=== PATIENT | female | born 1950 | race Caucasian/White ===

== ENCOUNTER → 2017-06-21 | Outpatient (CLI) | payer OTHER | END | disposition home or self-care (01) | LOC: CVU 12:32 | PROVIDERS: ATTEND Internal Medicine Cardiovascular Disease | DX: I08.3 Combined rheumatic disorders of mitral, aortic and tricuspid valves (principal); E78.00 Pure hypercholesterolemia, unspecified | CPT/HCPCS: 93306 ==

== ENCOUNTER 2017-07-15 06:20 | Day surgery (SDC) | payer OTHER ==
[2017-07-12 09:44] VITALS: BP 150/88
[2017-07-12 10:40] LABS: BLOOD UREA NITROGEN 14 mg/dL (7-18)
[~2017-07-15] VITALS: Ht 167.6 cm; Wt 118.1 kg
[~2017-07-15 06:20] MED LIST: CHRO1000 PO; DILT240C PO; FLEC50TA25 PO; GARL5000 PO; KRIL1CAP19 PO; LEVO112T2 PO; LUTE1CAP PO; PREN1COM10 PO; RIVA20TA PO; SIMV20TA3 PO; TURM538C PO; UBID1CAP43 PO; VITA1CAP PO; cinsulin PO; magnesium PO
[2017-07-15] MEDS ORDERED: MIDAZOLAM 1 MG/ML, 5ML ONE (06:56)
[2017-07-15] MEDS ORDERED: FENTANYL PF 100 MCG/2ML ONE (06:56)
== END 2017-07-15 08:53 ==
LOC: CACL 06:20
PROVIDERS: ATTEND Internal Medicine Cardiovascular Disease
DX: I48.91 Unspecified atrial fibrillation (principal); E78.5 Hyperlipidemia, unspecified; E03.9 Hypothyroidism, unspecified; I10 Essential (primary) hypertension; Z98.890 Other specified postprocedural states
CPT/HCPCS: 36415; 80048; 84443; 85610; 92960; 93005; J2250; J3010

== ENCOUNTER 2017-08-03 10:49 | Day surgery (SDC) | payer OTHER ==
[~2017-08-03] VITALS: Ht 167.6 cm; Wt 120.5 kg
[2017-08-03] MEDS ORDERED: PROPOFOL 10 MG/ML, 20ML ONE (11:04)
[2017-08-03 11:12] VITALS: BP 166/71
[2017-08-03 12:01] LABS: BLOOD UREA NITROGEN 13 mg/dL (7-18)
== END 2017-08-03 13:59 ==
LOC: CACL 10:49
PROVIDERS: ATTEND Internal Medicine Cardiovascular Disease
DX: I48.91 Unspecified atrial fibrillation (principal); I10 Essential (primary) hypertension; E78.5 Hyperlipidemia, unspecified; E03.9 Hypothyroidism, unspecified; Z98.890 Other specified postprocedural states; Z87.891 Personal history of nicotine dependence
CPT/HCPCS: 36415; 80048; 84443; 92960; 93005; J2704